=== PATIENT | female | born 1950 | race Hispanic/Latino ===

== ENCOUNTER 2017-03-08 15:01 | Observation (INO) | payer SELFPAY ==
--- NOTE | 2017-03-08 16:25 | ED PDOC ---
Arrival/HPI <TreverKendall - Last Filed: 03/09/17 07:01> - General Historian: Patient - History of Present Illness Time/Duration: 1-3 hours Symptom Onset: Gradual Symptom Course: Unchanged Activities at Onset: Rest Context: Home <Idalmis Crump - Last Filed: 03/19/17 15:47> - General Time Seen by Provider: 03/08/17 15:31 - History of Present Illness Narrative History of Present Illness (Text): 03/08/17 15:31 66 year old male, who refuses to identify himself, presents to the emergency department complaining of left knee pain due to the rain for a few hours. Patient appears to be female but insists that she is a male. Patient believes that she is god and only calls herself god. Patient denies any suicidal or homicidal ideation or any other complaint at this time. Patient denies drinking any alcohol. (Annie Crumpkeven Cavanaugh) Past Medical History - Provider Review Nursing Documentation Reviewed: Yes <Idalmis Crump - Last Filed: 03/19/17 15:47> Family/Social History - Physician Review Nursing Documentation Reviewed: Yes Family/Social History: No Known Family HX <Idalmis Crump Y - Last Filed: 03/19/17 15:47> Allergies/Home Meds <VitoemelyKendall - Last Filed: 03/09/17 07:01> <Idalmis Crump Y - Last Filed: 03/19/17 15:47> Allergies/Adverse Reactions: Allergies Unobtainable Allergy (Verified 03/08/17 16:42) Home Medications: Home Meds Medication Instructions Recorded Confirmed Unobtainable 03/08/17 03/08/17 Review of Systems - Physician Review All systems were reviewed & negative as marked: Yes - Review of Systems Constitutional: absent: Fevers, Night Sweats Eyes: absent: Vision Changes ENT: absent: Hearing Changes Respiratory: absent: SOB, Cough Cardiovascular: absent: Chest Pain Gastrointestinal: absent: Abdominal Pain Musculoskeletal: Other (Left knee pain). absent: Arthralgias Skin: absent: Rash, Pruritis Neurological: absent: Headache, Dizziness Endocrine: absent: Diaphoresis Hemo/Lymphatic: absent: Easy Bleeding Psychiatric: absent: Depression <AlisiaIdalmis Y - Last Filed: 03/19/17 15:47> Physical Exam Vital Signs Reviewed: Yes Temperature: Afebrile Blood Pressure: Normal Pulse: Regular Respiratory Rate: Normal Appearance: Positive for: Other (Delusional) Pain Distress: None Mental Status: Positive for: Alert and Oriented X 3 - Systems Exam Head: Present: Atraumatic, Normocephalic Pupils: Present: PERRL Extroacular Muscles: Present: EOMI Conjunctiva: Present: Normal Mouth: Present: Moist Mucous Membranes Neck: Present: Normal Range of Motion Respiratory/Chest: Present: Clear to Auscultation, Good Air Exchange. No: Respiratory Distress, Accessory Muscle Use Cardiovascular: Present: Regular Rate and Rhythm, Normal S1, S2. No: Murmurs Abdomen: Present: Normal Bowel Sounds. No: Tenderness, Distention, Peritoneal Signs Back: Present: Normal Inspection Upper Extremity: Present: Normal Inspection. No: Cyanosis, Edema Lower Extremity: Present: Normal Inspection. No: Edema Neurological: Present: GCS=15, CN II-XII Intact, Speech Normal Skin: Present: Warm, Dry, Normal Color. No: Rashes Psychiatric: Present: Alert, Oriented x 3, Normal Insight, Normal Concentration <Idalmis Crump Y - Last Filed: 03/19/17 15:47> Vital Signs Temp Pulse Resp BP Pulse Ox 03/09/17 15:53 98.2 F 79 16 92/43 L 98 03/09/17 14:52 98.5 F 81 18 90/54 L 96 03/09/17 13:00 98.2 F 82 20 92/58 L 96 03/09/17 09:00 97.9 F 70 16 96/56 L 97 03/09/17 07:01 70 16 96/57 L 97 03/09/17 04:53 98.9 F 72 18 97 03/08/17 21:59 99 F 80 20 115/70 98 03/08/17 18:00 72 18 112/71 98 03/08/17 15:26 98.0 F 88 24 107/77 98 Medical Decision Making <Kendall Perera - Last Filed: 03/09/17 07:01> <Idalmis Crump - Last Filed: 03/19/17 15:47> ED Course and Treatment: 03/08/17 19:28 sign out from day shift, pt pending PES evaluation pt refusing to tell us his name. states he wants to be as sir. denies complaints. denies SI/HI 03/09/17 06:06 pt pending bed resting in bed denies complaints at this time 03/09/17 07:00 [place] [facility] [place], [place] bed pt signed out to Dr. Pappas in stable condition (Kendall Perera) 03/08/17 15:31 Impression: 66 year old male complaining of left knee pain for a few hours. Differential Diagnosis include but are not limited to: Plan: -- Reassess and disposition Progress Notes: EKG: Ordered, reviewed, and independently interpreted the EKG. Rate : 84 BPM Rhythm : NSR Interpretation : No ST-segment elevations or depressions, no T-wave inversions, normal intervals. Comparison : No previous EKG for comparison. 03/08/17 18:42 pt awaiting clearance/pes eval. 03/19/17 15:46 (Idalmis Crump) - Medication Orders Current Medication Orders: Discontinued Medications Risperidone (Risperdal Oral Soln) 0.5 mg PO BID ALEXEI PRN Reason: Protocol Last Admin: 03/09/17 13:00 Dose: 0.5 mg Ziprasidone (Geodon Inj) 10 mg IM Q8H PRN; Protocol PRN Reason: severe agitation Disposition/Present on Arrival - Present on Arrival Any Indicators Present on Arrival: No - Disposition Have Diagnosis and Disposition been Completed?: Yes Disposition Time: 07:02 Patient Plan: [place] [place] <Kendall Perera - Last Filed: 03/09/17 07:01> - Present on Arrival Any Indicators Present on Arrival: No History of DVT/PE: No History of Uncontrolled Diabetes: No Urinary Catheter: No History of Decub. Ulcer: No - Disposition Have Diagnosis and Disposition been Completed?: Yes <Idalmis Crump - Last Filed: 03/19/17 15:47> - Disposition Diagnosis: Medical clearance for psychiatric admission Disposition: [place] [facility] [place] Condition: STABLE
[2017-03-08 16:43] VITALS: BMI 26.6
[2017-03-08 17:34] LABS: ADD MANUAL DIFF? NO
[2017-03-08 17:49] LABS: BASO # 0.02 K/mm3 (0.0-2.0); BASO % 0.4 % (0.0-3.0); EOS # 0.1 (0.0-0.7); EOS % 1.3 % (1.5-5.0); GRAN # 3.19 (1.4-6.5); GRAN % 57.4 % (50.0-68.0); HEMATOCRIT 36.4 % (36.0-48.0); LYMPH # 1.6 (1.2-3.4); LYMPH % 28.8 % (22.0-35.0); MEAN CORPUSCULAR HGB CONC 34.1 g/dl (31.0-37.0); MEAN PLATELET VOLUME 11.8 fl (7.0-11.0); MONO # 0.7 (0.1-0.6); MONO % 12.1 % (1.0-6.0); PLATELET COUNT 175 10^3/uL (120.0-450.0); RED CELL DISTRIBUTION WIDTH 13.5 % (11.5-14.5); WHITE BLOOD COUNT 5.6 10^3/ul (4.5-11.0)
[2017-03-08 19:14] LABS: ALB/GLOB RATIO 1.5 (1.1-1.8); ALKALINE PHOSPHATASE 48 U/L (38-133); ALT/SGPT 17 U/L (7-56); AST/SGOT 30 U/L (15-39); BILIRUBIN,TOTAL 0.8 mg/dL (0.2-1.3); BLOOD UREA NITROGEN 22 mg/dL (7-21); CARBON DIOXIDE 23 mmol/L (21-33); CHLORIDE 101 mmol/L (95-110); GFR AFRICAN-AMERICAN > 60; GLUCOSE,RANDOM 89 mg/dL (70-110); POTASSIUM 4.4 mmol/L (3.6-5.0); SODIUM 135 mmol/L (132-148); TOTAL PROTEIN 6.4 g/dL (5.8-8.3)
[2017-03-08 21:31] LABS: PH,URINE 6.5 (4.7-8.0); URINE BILIRUBIN NEGATIVE (NEGATIVE); URINE BLOOD NEGATIVE (NEGATIVE); URINE GLUCOSE (UA) NEGATIVE (NEGATIVE); URINE KETONE NEGATIVE (NEGATIVE); URINE LEUKOCYTE ESTERASE LARGE Leu/uL (NEGATIVE); URINE PROTEIN NEGATIVE mg/dL (<30 mg/dL); URINE UROBILINOGEN 0.2 E.U./dL (<1 E.U./dL)
[2017-03-08 21:37] LABS: URINE COLOR YELLOW (YELLOW)
[2017-03-08 22:01] LABS: URINE APPEARANCE CLEAR (CLEAR); URINE BACTERIA FEW (NEG); URINE EPITHELIAL CELLS 0 - 2 /hpf (0-5); URINE RBC NEGATIVE /hpf (0-2)
--- NOTE | 2017-03-09 07:31 | ED PDOC ---
Physical Exam Vital Signs Reviewed: Yes Vital Signs Temp Pulse Resp BP Pulse Ox 03/09/17 07:01 70 16 96/57 L 97 03/09/17 04:53 98.9 F 72 18 97 03/08/17 21:59 99 F 80 20 115/70 98 03/08/17 18:00 72 18 112/71 98 03/08/17 15:26 98.0 F 88 24 107/77 98 Temperature: Afebrile Blood Pressure: Normal Pulse: Regular Respiratory Rate: Normal Appearance: Positive for: Well-Appearing, Non-Toxic, Comfortable Pain Distress: None Mental Status: Positive for: Alert and Oriented X 3 Medical Decision Making ED Course and Treatment: 03/09/17 07:00 Case signed out to me from overnight by Dr. Perera, pending reevaluation and disposition. The patient is a 66 year old who came into the emergency department yesterday complaining of knee pain. Patient appears to be a female but is insisting she is a male and wants to be identified as a he. Patient refused to identify himself and believes he is god. Patient was medical cleared by previous provider. [place] [facility] [place]. On reevaluation, the patient is resting comfortably. - Lab Interpretations I have reviewed the lab results: Yes - Scribe Statement The provider has reviewed the documentation as recorded by the Herlindaibe Gladys Bhandari Provider Scribe Attestation: All medical record entries made by the Scribe were at my direction and personally dictated by me. I have reviewed the chart and agree that the record accurately reflects my personal performance of the history, physical exam, medical decision making, and the department course for this patient. I have also personally directed, reviewed, and agree with the discharge instructions and disposition. Disposition/Present on Arrival - Present on Arrival Any Indicators Present on Arrival: No History of DVT/PE: No History of Uncontrolled Diabetes: No Urinary Catheter: No History of Decub. Ulcer: No History Surgical Site Infection Following: None - Disposition Have Diagnosis and Disposition been Completed?: Yes Diagnosis: Medical clearance for psychiatric admission Disposition: [place] [facility] [place] Time: 09:00 Condition: STABLE
--- NOTE | 2017-03-09 10:51 | CON ---
DATE: 03/09/2017 HISTORY OF PRESENT ILLNESS: Shortly, the patient is a 66-year-old female who was brought in for eval uation of altered mental status. The patient complained of leg pain. During the interview, the oma ent referred to herself as a male. The patient also feels that she is God and also was not able to i dentify herself. Overnight, patient was seen by [facility], was accepted. At presen t moment, the patient is waiting for a bed to be available. This typewriter aligner is not aware of the patient' s previous history. During the interview, patient refused to talk and seems to be in catatonic speec h or intentionally did not want to talk. This typewriter aligner reviewed PS evaluation. The patient referred t o herself as God. Initially, the patient came to the Emergency Room looking for psychiatrist/Dr. Shayne kirk and was not participating in the interview. The patient obviously was hallucinating, seeing fece s on her hands but obviously there is no feces. VITAL SIGNS: This typewriter aligner reviewed vital signs. Vital signs seem to be stable. MEDICATIONS: Reviewed. None was provided overnight. LABORATORY DATA: Seem to be within normal limits. Chemistry within normal limits. Urinalysis: Renata kocyte esterase is high. Toxicology is negative for any substances. MENTAL STATUS EXAMINATION: This typewriter aligner cannot assess mental status examination, but the patient was sleeping, refusing to talk and presented to have marginal personal hygiene, ____. There is no insigh t into her mental illness. Impulses are not predictable. IMPRESSION: Psychosis, not otherwise specified; rule out schizophrenia spectrum disorder. PLAN: Continue current management. The patient was accepted by [facility], awaiting for bed available. This typewriter aligner will place order for p.r.n. medication in case of agitation. Geodon as well as Risperdal will be started in the Emergency Room, liquid form. Discussed with the medical team. Thank you very much for letting me participate in the care of your patient. Should you have any ques tions, give me a call back. Francia Kunz MD cc: [phone] TT: 03/09/2017 10:51:04 Confirmation # [id number] Dictation # [id number] mn
--- NOTE | 2017-03-09 14:52 | RAD ---
HISTORY: altered mental status COMPARISON: No prior. FINDINGS: LUNGS: No active pulmonary disease. PLEURA: No significant pleural effusion identified, no pneumothorax apparent. CARDIOVASCULAR: Normal. OSSEOUS STRUCTURES: No significant abnormalities. VISUALIZED UPPER ABDOMEN: Normal. OTHER FINDINGS: None. IMPRESSION: No active disease.
--- NOTE | 2017-03-09 14:52 | RAD ---
PROCEDURE: Right Knee Radiographs. HISTORY: r knee pain COMPARISON: None. FINDINGS: BONES: Normal. No fracture. JOINTS: Normal. No osteoarthritis. JOINT EFFUSION: None. OTHER FINDINGS: None. IMPRESSION: Normal radiographs of the right knee.
--- NOTE | 2017-03-09 15:22 | CARD ---
APPROVED REPORT EKG Measurement Heart [id number] <Conclusion> Normal sinus rhythm Normal ECG
[2017-03-09 15:53] VITALS: PULSE 79; RESP 16; TEMP 98.2; O2SAT 98
[2017-03-09 15:55] VITALS: BP 92/43
== END 2017-03-09 16:10 | disposition short-term general hospital (02) ==
LOC: EDSEX → ED 15:01 → EROBSV 16:51
PROVIDERS: ADMIT Emergency Medicine; ATTEND Emergency Medicine
DX: Z00.8 Encounter for other general examination (principal); M25.561 Pain in right knee
CPT/HCPCS: 36415; 71010; 73560; 80053; 81001; 85025; 87040; 87086; 90791; 93005; 99285; G0378; G0480